=== PATIENT | male | born 1975 | race Caucasian/White ===

== ENCOUNTER 2016-11-12 22:34 | Inpatient (IN) ==
[2016-11-12] MEDS ORDERED: Clindamycin 600 MG/50 ML 600 MG/50 ML IV.SOLN IVPB STA (23:31)
--- NOTE | 2016-11-12 23:34 | Emergency Department Note ---
Disposition Clinical Impression: Cellulitis Qualifiers: Site of cellulitis: extremity Site of cellulitis of extremity: lower extremity Laterality: left Qualified Code(s): L03.116 - Cellulitis of left lower limb Disposition: Admitted As Inpatient Condition: Good Time of Disposition: 01:01 Extremity Problem HPI - General Chief complaint: ED Wound/Laceration Stated complaint: left leg redness Time Seen by Provider: 11/12/16 23:15 Source: patient Limitations: no limitations Nursing Notes Reviewed: Yes Vital Signs Reviewed: Yes - History of Present Illness Pt Subjective Complaint: extremity pain Onset (ago): day(s) Consistency: Worsening Injury Location: lower extremity Pain Scale: 3 Worsens with: weight bearing, walking, palpation Associated symptoms: Denies: chest pain, shortness of breath, abdominal pain, rash Context: other (h/o venous stasis) - Related Data Home Medications Medication Instructions Recorded Confirmed No Known Home Drugs 08/12/15 08/12/15 Allergies Allergy/AdvReac Type Severity Reaction Status Date / Time No Known Allergies Allergy Verified 08/12/15 17:33 All systems ED: reviewed and negative except as stated. Constitutional: Denies: fever, chills Eyes: Denies: vision change ENT ED: Denies: throat pain Cardiovascular: Denies: chest pain Respiratory: Denies: dyspnea Gastrointestinal: Denies: abdominal pain, nausea, vomiting Integumentary: Reports: as per HPI Neurological: Denies: weakness Hematological/Lymphatic: Denies: easy bleeding Allergic/Immunologic: Denies: facial swelling Past Medical History - Past Medical History Medical history: Reports: no medical history Psychiatric history: Reports: no psych history - Social History Smoking Status: Never smoker Smokeless Tobacco Status: No Alcohol use: Reports: occasionally Drug use: Reports: none Physical Exam GENERAL: alert, well appearing, no acute distress HEAD: atraumatic, normocephalic EYE: EOM intact, no conjunctival injection ENT: mucous membranes moist, voice normal in character, nose normal in appearance, no rhinorrhea NECK: normal ROM without stiffness CHEST: symmetric chest wall rise RESPIRATORY: no respiratory distress CARDIOVASCULAR: Regular rate ABDOMINAL EXAM: No evidence of abdominal discomfort or peritoneal signs; Absent : guarding, rebound, distention NEURO: Present: alert PSYCH: Normal mood and affect; no evidence of disorganized thoughts or confusion SKIN: warm, dry, intact, normal color for age and race; - General Limitations: no limitations General appearance: alert, in no apparent distress - Extremities Exam Extremities exam: Present: normal inspection, full ROM, normal capillary refill - Expanded Lower Extremity Exam Lower leg exam: Present: tenderness (Left), swelling (Left), erythema (Left), Achilles tendon intact. Absent: Homans' sign Ankle exam: Present: full ROM, swelling. Absent: tenderness Foot/toe exam: Present: normal inspection, full ROM. Absent: tenderness at base of 5th metatarsal Neurovascular/Tendon exam: Present: normal capillary refill. Absent: pulse deficit, motor deficit Gait: observed and normal Course Course Narrative: 41-year-old male complains of worsening redness to his lower leg. He states he first noticed this 3 days ago. 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 He has been on 500 Keflex twice daily for 2 days. He states he had quite a compression bandage and had removed it earlier today and noticed that the redness had been worsening, and had noticed some drainage. Pain is worse with palpation and with walking. He does mention chronic left lower leg swelling. Denies any fevers, chills, nausea, vomiting history of skin infections. Patient seen and examined. Area of erythema, 10x 10 centimeter over her anterior medial aspect of distal left lower extremity. No pain with passive or active range of motion of the ankle. Vitals are within normal limits. We will initiate IV antibiotics, clindamycin to cover MRSA. - Reevaluation(s) Reevaluation #1: Patient discussed with Dr. Roberts who had face time with patient, advised for admission for inpatient treatment with IV antibiotics, and stated she will take over care of patient including labwork and discussion with hospitalists. Time: 01:01 Vital Signs Temperature 98.1 F 11/12/16 22:56 Pulse Rate 89 11/12/16 22:56 Respiratory Rate 16 11/12/16 22:56 Blood Pressure 123/85 11/12/16 22:56 O2 Sat by Pulse Oximetry 98 11/12/16 22:56 Temperature 97.7 F 11/13/16 03:05 Pulse Rate 74 11/13/16 03:05 Respiratory Rate 17 11/13/16 03:05 Blood Pressure 114/73 11/13/16 03:05 O2 Sat by Pulse Oximetry 99 11/13/16 03:05 Oxygen Delivery Oxygen Delivery Room Air Extremity Problem, Nontraumati - Lab Data Result diagrams: 11/13/16 01:17 11/13/16 01:17 Lab Results 11/13/16 11/13/16 11/13/16 Range/Units 01:17 01:17 01:17 WBC 10.8 (4.3-11.1) K/mcL RBC 5.04 (4.19-5.50) M/mcL Hgb 13.8 (12.9-16.9) g/dL Hct 42.1 (37.5-50.1) % MCV 83.5 (83.0-100.0) fL MCH 27.4 L (28.0-33.3) pg MCHC 32.8 (31.6-35.5) g/dL RDW 11.7 (11.5-14.5) % Plt Count 251 (140-400) K/mcL MPV 10.1 (9.4-12.4) fL Immature Gran % 0.3 (0-4) % Seg Neutrophils % 68.9 % Lymphocytes % 19.9 % Monocytes % 8.2 % Eosinophils % 2.4 % Basophils % 0.3 % Neutrophils # 7.4 (1.6-8.9) K/mcL Lymphocytes # 2.2 (0.6-4.6) K/mcL Monocytes # 0.9 (0.0-1.3) K/mcL Eosinophils # 0.3 (0.0-0.6) K/mcL Basophils # 0.0 (0.0-0.2) K/mcL Sodium 135 L (136-145) mEq/L Potassium 4.3 (3.5-4.5) mEq/L Chloride 103 (98-109) mEq/L Carbon Dioxide 22 (19-29) mEq/L BUN 15 (8-26) mg/dL Creatinine 0.89 (0.72-1.25) mg/dL Est GFR ( Amer) > 60 (> 60) Est GFR (Non-Af Amer) > 60 (> 60) BUN/Creatinine Ratio 17 (6-26) Glucose 103 H (70-99) mg/dL POC Glucose (58-89) Calculated Osmolality 281 (280-300) Lactic Acid 0.6 (0.5-2.2) mmol/L Calcium 9.3 (8.6-10.8) mg/dL Total Bilirubin 0.5 (0.2-1.2) mg/dL AST 18 (5-34) Units/L ALT 15 (0-55) Units/L Alkaline Phosphatase 85 (38-126) Units/L Serum Total Protein 7.8 (6.0-8.3) g/dL Albumin 3.7 (3.5-5.0) g/dL Globulin 4.1 H (2.4-3.5) g/dL Albumin/Globulin Ratio 0.9 L (1.1-2.2) 11/13/16 Range/Units 03:07 WBC (4.3-11.1) K/mcL RBC (4.19-5.50) M/mcL Hgb (12.9-16.9) g/dL Hct (37.5-50.1) % MCV (83.0-100.0) fL MCH (28.0-33.3) pg MCHC (31.6-35.5) g/dL RDW (11.5-14.5) % Plt Count (140-400) K/mcL MPV (9.4-12.4) fL Immature Gran % (0-4) % Seg Neutrophils % % Lymphocytes % % Monocytes % % Eosinophils % % Basophils % % Neutrophils # (1.6-8.9) K/mcL Lymphocytes # (0.6-4.6) K/mcL Monocytes # (0.0-1.3) K/mcL Eosinophils # (0.0-0.6) K/mcL Basophils # (0.0-0.2) K/mcL Sodium (136-145) mEq/L Potassium (3.5-4.5) mEq/L Chloride (98-109) mEq/L Carbon Dioxide (19-29) mEq/L BUN (8-26) mg/dL Creatinine (0.72-1.25) mg/dL Est GFR ( Amer) (> 60) Est GFR (Non-Af Amer) (> 60) BUN/Creatinine Ratio (6-26) Glucose (70-99) mg/dL POC Glucose 108 H (58-89) Calculated Osmolality (280-300) Lactic Acid (0.5-2.2) mmol/L Calcium (8.6-10.8) mg/dL Total Bilirubin (0.2-1.2) mg/dL AST (5-34) Units/L ALT (0-55) Units/L Alkaline Phosphatase (38-126) Units/L Serum Total Protein (6.0-8.3) g/dL Albumin (3.5-5.0) g/dL Globulin (2.4-3.5) g/dL Albumin/Globulin Ratio (1.1-2.2)
[2016-11-13] MEDS ORDERED: Vancomycin 1,000 MG in D5% in Water 250 ML IVPB ONE (01:02)
[2016-11-13] MEDS ORDERED: 0.9 % Sodium Chloride 1,000 ML IVC ONE (01:02)
[2016-11-13] MEDS ORDERED: Piperacillin/Tazobactam 3.375 GM in D5% in Water (Mini-Bag+) 100 ML IVPB ONE (01:02)
--- NOTE | 2016-11-13 01:19 | Emergency Department Note ---
Disposition Clinical Impression: Cellulitis Qualifiers: Site of cellulitis: extremity Site of cellulitis of extremity: lower extremity Laterality: left Qualified Code(s): L03.116 - Cellulitis of left lower limb Disposition: Admitted As Inpatient Condition: Good Referrals: NONE,PCP [Primary Care Provider] - Forms: ED Satisfaction Letter Time of Disposition: 01:21 Wound/Laceration HPI - General Chief Complaint: ED Wound/Laceration Stated Complaint: left leg redness Time Seen by Provider: 11/12/16 23:15 Source: patient Limitations: no limitations Nursing Notes Reviewed: Yes Vital Signs Reviewed: Yes - History of Present Illness HPI Narrative: 41 year old male presents to the ED with complaints of LLE cellulitis. 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 PAtient states that he has venous insufficiency issues and that he follows with Dr. Bauer and is scheduled to have a CTA of his bilateral femorals for DVT/blockages. PAtient states that for the past week it has been getting worse. It stated with an ulcer on the medial side of the left lower leg and then he consulted his dermatology freinds and they recommended a certain cream and the ulcer got better. Unfortnately he had it wrapped up in a verito bandage for two days and when he unwrapped it there was extensive redness and pain to the area and has increaed drainge from the ulcer with increased ulceration and sloughing of some of the skin. PAtient denies fevers, nausea, or vomitting. The celulltic changes are 3/4 circumferential. He was most recently on kelfex therapy and essentialy has failed outpatient therapy. - Related Data Home Medications Medication Instructions Recorded Confirmed No Known Home Drugs 08/12/15 08/12/15 Allergies Allergy/AdvReac Type Severity Reaction Status Date / Time No Known Allergies Allergy Verified 08/12/15 17:33 Constitutional: Denies: fever, chills Eyes: Denies: vision change ENT ED: Denies: throat pain Cardiovascular: Denies: chest pain Respiratory: Denies: dyspnea Gastrointestinal: Denies: abdominal pain, nausea, vomiting Genitourinary: Denies: urgency, dysuria, frequency, hematuria Musculoskeletal: Reports: other (LLE wound). Denies: back pain, neck pain, arthralgia, myalgia Integumentary: Reports: as per HPI Neurological: Denies: weakness Psychiatric: Denies: anxiety, depression, suicidal thoughts, homicidal thoughts , auditory hallucinations, visual hallucinations Endocrine: Denies: fatigue Hematological/Lymphatic: Denies: easy bleeding Allergic/Immunologic: Denies: facial swelling Past Medical History - Past Medical History Medical history: Reports: no medical history Psychiatric history: Reports: no psych history - Social History Smoking Status: Never smoker Smokeless Tobacco Status: No Alcohol use: Reports: occasionally Drug use: Reports: none Physical Exam - General Limitations: no limitations General appearance: alert, in no apparent distress - Head Head exam: atraumatic, normocephalic, normal inspection - Eye Eye exam: Present: normal appearance, PERRL, EOMI - Expanded Eye Exam Pupils: Bilateral: reactive - ENT ENT exam: normal exam, normal oropharynx, mucous membranes moist - Expanded ENT Exam External ear exam: Present: normal external inspection Mouth exam: Present: normal external inspection Teeth exam: Present: normal inspection Throat exam: Present: normal inspection - Neck Neck exam: Present: normal inspection, full ROM, trachea midline - Chest Chest inspection: Present: normal inspection, symmetric chest wall rise - Respiratory Respiratory exam: Present: normal lung sounds bilaterally - Cardiovascular Cardiovascular exam: Present: regular rate, normal rhythm, normal heart sounds - Abdominal Exam Abdominal exam: Present: soft, Non-Tender. Absent: tenderness, distention, guarding, rebound, rigidity - Extremities Exam Extremities exam: Present: normal inspection, full ROM. Absent: tenderness, pedal edema - Expanded Upper Extremity Exam Shoulder exam: Present: normal inspection, full ROM Arm exam: Present: normal inspection, full ROM Elbow exam: Present: normal inspection, full ROM Forearm/Wrist exam: Present: normal inspection, full ROM Hand exam: Present: normal inspection, full ROM Vascular exam: Normal: capillary refill, radial pulse - Expanded Lower Extremity Exam Hip/Pelvis exam: Present: normal inspection, full ROM Upper leg exam: Present: normal inspection, full ROM 1 - cellulitis 3/4 circumferential with ulceration and drainge wound to the medial side above his ankle. ulceation with drainge is [id number] Knee exam: Present: normal inspection, full ROM Lower leg exam: Present: normal inspection, full ROM Ankle exam: Present: normal inspection, full ROM Foot/toe exam: Present: normal inspection, full ROM Neurovascular/Tendon exam: Absent: motor deficit, sensory deficit, tendon deficit - Back Exam Back exam: Present: normal inspection, full ROM. Absent: tenderness - Neurological Exam Neurological exam: Present: alert, oriented X3 - Expanded Neurological Exam Patient oriented to: Present: person, place, time Coma Scale Eye Opening: Spontaneous Coma Scale Motor Response: Obeys Commands Coma Scale Verbal Response: Oriented Coma Scale Total: 15 - Psychiatric Psychiatric exam: Present: normal affect, normal mood - Skin Skin exam: Present: warm, dry, intact, normal color Course Course Narrative: we will do cellulitis workup with vanco/zosyn therapy and blood/wound cultures pending. Will admit to medicine. Vital Signs Temperature 98.1 F 11/12/16 22:56 Pulse Rate 89 11/12/16 22:56 Respiratory Rate 16 11/12/16 22:56 Blood Pressure 123/85 11/12/16 22:56 O2 Sat by Pulse Oximetry 98 11/12/16 22:56 Temperature 98.1 F 11/12/16 22:56 Pulse Rate 89 11/12/16 22:56 Respiratory Rate 16 11/12/16 22:56 Blood Pressure 123/85 11/12/16 22:56 O2 Sat by Pulse Oximetry 98 11/12/16 22:56 Oxygen Delivery Oxygen Delivery Room Air
[2016-11-13 01:24] LABS: Basophils % 0.3 %; Eosinophils # 0.3 K/mcL (0.0-0.6); Eosinophils % 2.4 %; Hematocrit 42.1 % (37.5-50.1); Hemoglobin 13.8 g/dL (12.9-16.9); Immature Granulocytes % 0.3 % (0-4); Lymphocytes # 2.2 K/mcL (0.6-4.6); Lymphocytes % 19.9 %; Mean Corpuscular HGB Conc 32.8 g/dL (31.6-35.5); Mean Corpuscular Hemoglobin 27.4 pg (28.0-33.3); Mean Corpuscular Volume 83.5 fL (83.0-100.0); Mean Platelet Volume 10.1 fL (9.4-12.4); Monocytes # 0.9 K/mcL (0.0-1.3); Monocytes % 8.2 %; Neutrophils # 7.4 K/mcL (1.6-8.9); Platelet Count 251 K/mcL (140-400); Red Blood Count 5.04 M/mcL (4.19-5.50); Red Cell Distribution Width 11.7 % (11.5-14.5); Segmented Neutrophils % 68.9 %
[2016-11-13 01:38] LABS: Alanine Aminotransferase 15 Units/L (0-55); Albumin 3.7 g/dL (3.5-5.0); Albumin/Globulin Ratio 0.9 (1.1-2.2); Alkaline Phosphatase 85 Units/L (38-126); Aspartate Amino Transferase 18 Units/L (5-34); BUN/Creatinine Ratio 17 (6-26); Bilirubin,Total 0.5 mg/dL (0.2-1.2); Blood Urea Nitrogen 15 mg/dL (8-26); Calcium 9.3 mg/dL (8.6-10.8); Carbon Dioxide 22 mEq/L (19-29); Chloride 103 mEq/L (98-109); Globulin 4.1 g/dL (2.4-3.5); Glucose 103 mg/dL (70-99); Osmolality,Calculated 281 (280-300); Potassium 4.3 mEq/L (3.5-4.5); Sodium 135 mEq/L (136-145); Total Protein 7.8 g/dL (6.0-8.3); eGFR For African Americans > 60 (> 60); eGFR For Non-African Americans > 60 (> 60)
[2016-11-13] MEDS ORDERED: Naloxone 0.4 MG/ML INJ IVP PRN (03:21)
[2016-11-13] MEDS ORDERED: Ondansetron 4 MG/2 ML VIAL IVP PRN (03:21)
[2016-11-13] MEDS ORDERED: *HR* Morphine 2 MG/ML SYRINGE IVP PRN (03:21)
[2016-11-13] MEDS ORDERED: *HR* HYDROcodone/Acet 5/325 mg TABLET PO PRN (03:21)
[2016-11-13] MEDS ORDERED: *HR* Promethazine 25 MG/ML VIAL IVP PRN (03:21)
[2016-11-13] MEDS ORDERED: Acetaminophen 325 MG TABLET PO PRN (03:21)
--- NOTE | 2016-11-13 03:38 | Internal Med History&Physical ---
Date of Encounter: 11/13/16 Time of Encounter: 02:45 Assessment and Plan (1) Left leg cellulitis Current visit: Yes Status: Acute Will admit the pt into Med Surg He did failed out pt abx therapy.. he tried Keflex from last 2 days with no improvement It does not look like he has an abscess formation at this point cont empirical IV abx Vancomycin + Zosyn Wound cx and blood cx done in ER.. will f/u on then later Will consult surgery Dr. Bauer in AM since he is already following with him as an out pt (2) Venous stasis Current visit: Yes Status: Acute reviewed recent Venous doppler results - negative for DVT He is scheduled for CTA of pelvis today as an out pt.. will contact the radiology about it. 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 it resolved on its own, however from past one week he noticed worsening swelling and erythema with a blister formation now. He did f/u with vascular surgeon Dr. Bauer who checked for DVT which came back as negative, also scheduled for CTA of pelvis this morning for better evaluation of his b/l LE circulation. Now he presented to ER c/o worsening swelling and noticed a blister over left leg distally on medial side with minimal drainage. Past Med Surg Social Fam HX - Past Medical History Medical history: no medical history Psychiatric history: no psych history - Past Surgical History Surgical History: vasectomy - Social History Smoking Status: Never smoker Smokeless Tobacco Status: No Alcohol use: occasionally Drug use: none - Family History Father Hx Family Cardiac Disorders: Yes (Afib) Internal Medicine - H&P: Meds No Known Home Drugs 08/12/15 [History] 3 Allergy/AdvReac Type Severity Reaction Status Date / Time No Known Allergies Allergy Verified 08/12/15 17:33 All Systems PM: A 10-system review of systems was performed and is negative for pertinent findings except as documented above in the HPI. Review of systems: All the systems are reviewed everything is benign except the systems and symptoms I mentioned in the history of present illness - Constitutional Vitals: Temp Pulse Resp BP Pulse Ox 97.7 F 74 17 114/73 99 11/13/16 03:05 11/13/16 03:05 11/13/16 03:05 11/13/16 03:05 11/13/16 03:05 General appearance: Present: A&O X 3, answers questions appropriately - Head Head exam: Present: atraumatic, normal inspection - Respiratory Respiratory exam: Present: CTAB. Absent: rales, respiratory distress, rhonchi, wheezes - Cardiovascular Cardiovascular exam: Present: RRR, +S1, +S2. Absent: diastolic murmur, gallop, rubs, systolic murmur - GI/Abdominal GI/Abdominal exam: Present: soft. Absent: pulsatile mass, rebound, rigid, tenderness - Extremities Exam Extremities exam: Present: tenderness. Absent: calf tenderness Additional comments: 6x8 cm size erythema over Left leg medial side, distally with 2.5 cm size bullous formation in the middle with mild discharge. No loculated pus pockets noticed - Back Exam Back exam: Absent: CVA tenderness (L), CVA tenderness (R) - Neurological Exam Neurological exam: Present: alert, oriented X3 - Psychiatric Psychiatric exam: Present: normal affect, normal mood Internal Med - H&P Results - Labs CBC & Chem 7: 11/13/16 01:17 11/13/16 01:17
[2016-11-13] MEDS ORDERED: Vancomycin 1,750 MG in D5% in Water 250 ML IVPB SCH (04:00)
[2016-11-13] MEDS ORDERED: Vancomycin 750 MG in D5% in Water 250 ML IVPB ONE (04:00)
[2016-11-13] MEDS: Piperacillin/Tazobactam 3.375 GM in D5% in Water (Mini-Bag+) 100 ML IVPB SCH ×2 (09:42→16:47)
--- NOTE | 2016-11-13 11:06 | Event Note ---
Date of Encounter: 11/13/16 Time of Encounter: 09:10 Patient is sitting up in chair. Continues to have erythema and cellulitis involving his left leg not including the foot. Bulla remains present and is draining serous fluid. Tender to palpation. Discussed with vascular surgery. Recommend CT angiogram of aorta with runoff. Ordered this. We will follow on the results. Continue IV antibiotics for now.
[2016-11-13] MEDS: Vancomycin 1,500 MG in D5% in Water 250 ML IVPB SCH (14:28)
--- NOTE | 2016-11-13 16:31 | Vascular/Endovascular H&P ---
Date of Encounter: 11/13/16 Time of Encounter: 08:50 History of Present Illness HPI: Mr. Karimi is a 41 year old male Past Med Surg Social Fam HX - Past Medical History Medical history: no medical history Psychiatric history: no psych history - Past Surgical History Surgical History: vasectomy - Social History Smoking Status: Never smoker Smokeless Tobacco Status: No Alcohol use: occasionally Drug use: none - Family History Father Hx Family Cardiac Disorders: Yes (Afib) Medications and Allergies No Known Home Drugs 08/12/15 [History] 3 Allergy/AdvReac Type Severity Reaction Status Date / Time No Known Allergies Allergy Verified 08/12/15 17:33 All Systems Review: A 10-system review of systems was performed and is negative for pertinent findings except as documented above in the HPI. Exam Vital Signs, Last 4 Hours Temp Pulse Resp BP Pulse Ox 11/13/16 16:14 97.4 F L 63 15 111/73 98 Results 11/13/16 01:17 11/13/16 01:17
--- NOTE | 2016-11-13 21:49 | Vascular/Endovasc Consult Note ---
Date of Encounter: 11/13/16 Time of Encounter: 08:50 Assessment and Plan (1) Chronic venous hypertension w/ulcer and inflammation involv left side Status: Chronic The patient has chronic venous hypertension with inflammation and ulceration. The patient has been using compression, elevation and exercise for years. Despite this he has developed progressive edema, pain and dermatitis. He currently has a venous statis ulcer with localized cellulitis. His CT scan reveals evidence of chronic venous hypertension and large symptomatic varicosities in the left leg. Given his complicated history, left greater saphenous vein ligation and left lower extremity microphlebectomy have been recommended. At this time, the patient will need to resolve his cellulitis. He will continue with intravenous antibiotics today. Culture results are pending. 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 Karimi is a 41 year old male with a long history of chronic left lower extremity edema and pain. He has worn compression stockings for several years. He has left lower extremity varicose veins. He recently was on vacation and did extensive walking and standing. He did not wear compression stockings for several days. He then developed acute pain and inflammation along the left medial distal leg. He took antibiotics and wrapped his leg. He developed worsening pain. He removed the wrap and was noted to have cellulitis with drainage and ulceration. He then came to the ER. He was admitted and started on Vancomycin and Zosyn. Vascular surgery was consulted for further evaluation. He denies any fevers or chills. He denies chest pain or shortness of breath. Past Med Surg Social Fam HX - Past Medical History Medical history: no medical history, venous stasis Psychiatric history: no psych history - Past Surgical History Surgical History: vasectomy - Social History Smoking Status: Never smoker Smokeless Tobacco Status: No Alcohol use: occasionally Drug use: none - Family History Father Hx Family Cardiac Disorders: Yes (Afib) Medications and Allergies Mupirocin [Bactroban Oint] 1 appl TP BID #1 tube 11/14/16 [Rx] Sulfamethoxazole/Trimeth DS [Bactrim DS] 1 each PO BID #28 tablet 11/14/16 [Rx] 3 Allergy/AdvReac Type Severity Reaction Status Date / Time No Known Allergies Allergy Verified 08/12/15 17:33 All Systems Review: A 10-system review of systems was performed and is negative for pertinent findings except as documented above in the HPI. - Constitutional Constitutional: no chills, no fever(s) Exam Vital Signs, Last 4 Hours Temp Pulse Resp BP Pulse Ox 11/13/16 19:42 98.1 F 71 16 106/66 97 General: Present: Conversant, No Apparent Distress HEENT: Present: Pupils equal Neck: Absent: JVD, Lymphadenopathy, Tracheal deviation Cardiac: Present: Reg Rate and Rhythm Lungs: Present: Normal Breath Sounds, No Wheeze, Rales, Rhonchi Neuro: Present: Alert and responsive, No focal deficits noted, Motor nerves grossly intact, Sensory nerves grossly intact Abdomen: Present: Soft, Non-tender. Absent: Masses Vascular: Present: Pulse, normal, Edema (left leg 1+ edema). Absent: Normal capillary refill, Cyanosis Skin: Absent: Wound/ulcer(s) (extensive stasis dermatitis of the left medial leg with surrounding cellulitis and a central ulceration, no fluctuance, no purulence) Musculoskeletal: Present: No Chest Wall Tenderness Consult Discharge Plan - Plan Instructions: Cellulitis (DC) Referrals: Mamadou Bauer MD [Partnered Physician] - 11/17/16 8:50 am () NONE,PCP [Primary Care Provider] - (Patient prefers to find his own primary care physician. Thank you) Prescriptions: Mupirocin [Bactroban Oint] 1 appl TP BID #1 tube Sulfamethoxazole/Trimeth DS [Bactrim DS] 1 each PO BID #28 tablet
[2016-11-13] MEDS ORDERED: Ibuprofen 600 MG TABLET PO PRN (22:02)
[2016-11-14] MEDS: Vancomycin 1,500 MG in D5% in Water 250 ML IVPB SCH (01:18)
[2016-11-14] MEDS: Piperacillin/Tazobactam 3.375 GM in D5% in Water (Mini-Bag+) 100 ML IVPB SCH ×2 (01:18→08:12)
[2016-11-14 06:49] LABS: BUN/Creatinine Ratio 11 (6-26); Blood Urea Nitrogen 9 mg/dL (8-26); Calcium 9.3 mg/dL (8.6-10.8); Carbon Dioxide 22 mEq/L (19-29); Chloride 108 mEq/L (98-109); Glucose 104 mg/dL (70-99); Osmolality,Calculated 287 (280-300); Potassium 4.2 mEq/L (3.5-4.5); Sodium 139 mEq/L (136-145); eGFR For African Americans > 60 (> 60); eGFR For Non-African Americans > 60 (> 60)
--- NOTE | 2016-11-14 10:57 | Vascular/Endovas Progress Note ---
Date of Encounter: 11/14/16 Time of Encounter: 07:35 - Assessment and plan (1) Chronic venous hypertension w/ulcer and inflammation involv left side Status: Chronic The patient has chronic venous hypertension with inflammation and ulceration. The patient has been using compression, elevation and exercise for years. Despite this he has developed progressive edema, pain and dermatitis. He currently has a venous stasis ulcer with localized cellulitis. He reports symptomatic improvement since starting vancomycin. His CT scan revealed evidence of chronic venous hypertension and large symptomatic varicosities in the left leg. His wound cultrures were positive for MRSA. Sensitivities are pending. His WBC is within normal limits and he remains afebrile. Plan for D/C to home with oral antibiotics. Plan for left greater saphenous vein ligation and left lower extremity microphlebectomy after his cellulitis has resolved. He may follow-up in clinic next week. 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 He denies any fevers or chills. He reports decreased pain n his left lower extremity. Vital Signs, Last 4 Hours Temp Pulse Resp BP Pulse Ox 11/14/16 10:38 97.5 F L 71 15 116/74 96 11/14/16 07:11 98.2 F 80 15 140/79 97 - Physical Examination General: Present: Conversant, No Apparent Distress HEENT: Present: Pupils equal Cardiac: Present: Reg Rate and Rhythm Lungs: Present: Normal Breath Sounds Neuro: Present: Alert and responsive, No focal deficits noted, Motor nerves grossly intact, Sensory nerves grossly intact Vascular: Present: Normal capillary refill, Pulse, normal, Edema (trace left ankle edema). Absent: Cyanosis Abdomen: Present: Soft Skin: Present: Wound/ulcer(s) (left medial leg stasis dermatitis with central ulceration and mild erythema and tenderness, no fluctuance noted) Results 11/13/16 01:17 11/14/16 06:24 Lab Results, Last 24 hours 11/14/16 06:24 Sodium 139 Potassium 4.2 Chloride 108 Carbon Dioxide 22 BUN 9 Creatinine 0.83 Glucose 104 H Calcium 9.3 Consult Discharge Plan - Plan Instructions: Cellulitis (DC) Referrals: Mamadou Bauer MD [Partnered Physician] - 11/17/16 8:50 am () NONE,PCP [Primary Care Provider] - (Patient prefers to find his own primary care physician. Thank you) Prescriptions: Mupirocin [Bactroban Oint] 1 appl TP BID #1 tube Sulfamethoxazole/Trimeth DS [Bactrim DS] 1 each PO BID #28 tablet
--- NOTE | 2016-11-14 11:28 | Discharge Summary ---
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 Priority: Secondary Status: Acute - Discharge Medications Prescriptions: Mupirocin [Bactroban Oint] 1 appl TP BID #1 tube Sulfamethoxazole/Trimeth DS [Bactrim DS] 1 each PO BID #28 tablet Home Medications: Mupirocin [Bactroban Oint] 1 appl TP BID #1 tube 11/14/16 [Rx] Sulfamethoxazole/Trimeth DS [Bactrim DS] 1 each PO BID #28 tablet 11/14/16 [Rx] Allergies/Adverse Reactions: 3 Allergy/AdvReac Type Severity Reaction Status Date / Time No Known Allergies Allergy Verified 08/12/15 17:33 Procedures/tests Complete & Pending: Procedures Performed prior 72 hours Category Date Time Status CT angio aorta w con runoff [CT] Stat Cat Scan 11/13/16 08:27 Completed Date of admission: 11/13/16 03:35 Primary care physician: PCP NONE Consults: 11/13/16 08:17 Consult to Vascular Surgery [CONS] Routine Consulting Provider: [facility] [place] Reason for Consult: Cellulitis/ concern for venous stasis/ poor circulation Time Notified: 08:18 Call Completed: Yes Discharging clinician: Emerald Young Anticipated date of discharge: 11/14/16 - Patient Status Disposition: Home, Self-Care Condition: Good Functional capacity at discharge: independent ambulation Overall status at discharge: patient is progressing back to baseline - Discharge Instructions Instructions: Cellulitis (DC) Follow Up With: NONE,PCP [Primary Care Provider] - Mamadou Bauer MD [Partnered Physician] - (in 2-3 weeks) - Diet and Activity Activity: increase activity as tolerated Diet: low salt diet Hospital course: Mr. Karimi is a 41 year old male patient with a history of chronic venous stasis admitted here with left leg cellulitis with venous ulcer. He had started treatment with cephalexin as outpatient but continued to have worsening erythema and discharge and so presented to the ER. Wound culture is positive for staph aureus that is likely MRSA. He received intravenous vancomycin with improvement and at erythema and swelling. He continues to have open ulcer with a blister that is draining serous fluid. No abscess identified. Vascular surgery was consulted and CT angiogram of the aorta with runoff was done which did not show any arterial abnormalities. Patient does have varicose veins and venous insufficiency especially in the left great saphenous vein. He also had reactive inguinal adenopathy. At this time, patient is cleared for discharge on oral antibiotics. He will be discharged on Bactrim twice daily for 14 days. - Time Spent with Patient Total time spent providing and/or coordinating discharge services: Less than 30 minutes (20 min) - Constitutional Vitals: Temp Pulse Resp BP Pulse Ox 97.5 F L 71 15 116/74 96 11/14/16 10:38 11/14/16 10:38 11/14/16 10:38 11/14/16 10:38 11/14/16 10:38 General appearance: Present: A&O X 3, answers questions appropriately - Respiratory Respiratory exam: Present: CTAB. Absent: accessory muscle use, rales, rhonchi, wheezes - Cardiovascular Cardiovascular exam: Present: RRR, +S1, +S2. Absent: diastolic murmur, gallop, rubs, systolic murmur - GI/Abdominal GI/Abdominal exam: Present: normal bowel sounds, soft, no peritoneal signs. Absent: distended, tenderness - Extremities Exam Extremities exam: Present: warm, radial pulses palpable and symmetrical. Absent : calf tenderness, cyanotic, pedal edema Additional comments: Circumferential erythema involving the left lower extremity excluding foot. This is improving compared to yesterday. Open ulcer with blister remains stable and decreased in size compared to yesterday. - Neurological Exam Neurological exam: Present: alert, oriented X3, no focal deficits. Absent: facial droop, speech deficit
[2016-11-14 14:39] VITALS: BP 115/74
[2016-11-14] MEDS ORDERED: Vancomycin 2,000 MG in D5% in Water 500 ML IVPB SCH (15:00)
[2016-11-14] MEDS ORDERED: Aminoglycoside Consult 1 EACH MC ONE (17:32)
== END 2016-11-14 17:33 | disposition home or self-care (01) | DRG 603 ==
LOC: 3ANU 22:34 → EMEROO 22:34 → 3ANU 11-13 02:30 → SUATTDRO 11-13 03:35
PROVIDERS: ADMIT Pediatrics; ATTEND Internal Medicine